=== PATIENT | male | born 1960 | race Caucasian/White ===

== ENCOUNTER 2017-01-27 09:57 | Emergency (ER) | payer OTHER ==
[~2017-01-27] VITALS: Ht 167.6 cm; Wt 120.0 kg
[~2017-01-27 09:57] MED LIST: ATEN100T PO; IBUP200C PO; LOSA50TA37 PO; OXYC5TAB72 PO; POLY17PO6 PO; RANI150C4 PO; TEST200V20 IM; ZYL100 PO
[2017-01-27 09:58] VITALS: BP 137/89; PULSE 42; RESP 18; O2SAT 100
--- NOTE | 2017-01-27 10:07 | ED.REPORT ---
HPI-Extremity Problem Lower Date of Service Jan 27, 2017 ED Provider: Jak Flor DO 56 y/o male with a hx of gout and arthritis presents to the ED complaining of bilateral knee pain, onset a few years ago. The pt states his PCP administers cortisone shots every 4-6 months but she couldn't do it this month. He also takes hydrocodone and Ibuprofen for the pain.The pt has already left a message with Dr. Francisco, orthopedic. He is concerned as he doesn't want to take time off from work due to the pain. PCP: Dr. Lu Nursing Notes Stated Complaint: KNEE PAIN Chief Complaint: Extremity Trauma Nursing Notes Reviewed: Yes Allergies: Coded Allergies: No Known Allergies (Verified Allergy, Unknown, 02/03/16) Scheduled Allopurinol (Allopurinol) 100 Mg Tablet 100 MG PO DAILY Atenolol (Atenolol) 100 Mg Tablet 100 MG PO DAILY Polyethylene Glycol 3350 (Miralax) 17 Gm Powd.pack 17 GM PO DAILY Prednisone (PredniSONE) 20 Mg Tablet 20 MG PO DAILY 2omg daily for 5 days, then 10 mg daily for 2 days Ranitidine (Ranitidine) 150 Mg Capsule 150 MG PO BID Testosterone Cypionate (Testosterone Cypionate) 200 Mg/1 Ml Vial 200 MG IM [id number] Scheduled PRN Ibuprofen (Ibuprofen) 200 Mg Capsule 200-400 MG PO QID PRN PRN For Pain oxyCODONE (oxyCODONE) 5 Mg Tablet 5 MG PO Q4H PRN PRN For Moderate Pain Miscellaneous Medications Losartan Potassium (Losartan Potassium) 50 Mg Tablet 50 MG PO General Time Seen by MD: 10:07 Chief Complaint Knee injury right, Knee injury left Hx Obtained From: Patient Arrived By: Walk-in Onset Occurred: More than a week ago... (>6 months) Symptom Duration: Since onset Location: : Knee left: Knee right Quality: Painful Severity: Current: Severe Severity: Maximum: Severe Recent Healthcare: Recent doctor visit Similar Sx Previous: Yes Past Medical History Past Medical History Gout Acid reflux Reports: Hyperlipidemia, Hypertension Past Surgical History Skin grafting, hospitalized in [facility] for 42 days per patient Left knee scope Hernia repair Family History non-contributory Smoking History Former Smoker Social History Alcohol Use: "Social" Drug Use: Denies drug use Ambulatory Status Independent Review of Systems Musculoskeletal: Reports: Joint pain (bilateral knees) Complete sys rev & neg: except as marked. Physical Exam Initial Vital Signs Vital Signs (First) Date Time Temp Pulse Resp B/P Pulse Ox O2 Delivery O2 Flow Rate FiO2 01/27/17 09:58 36.1 42 18 137/89 100 Room Air Initial VS: Reviewed Head / Eyes: Atraumatic, Normocephalic Neck: Full range of motion Respiratory: Breath sounds normal, No respiratory distress Cardiovascular: Regular rate & rhythm, Heart sounds normal Abdomen / GI: Soft, Non-tender Upper Extremities: Vascular intact, Neuro intact, No swelling, No tenderness Skin: Warm, Dry, No cyanosis Neurologic: Alert, Oriented, Nonfocal Lower Extremity / Pelvis / MS: Atraumatic, Full range of motion, No deformity, Neurologic intact, Vascular intact Ankle / Foot: Atraumatic, Full range of motion, No deformity, Neurologic intact , Vascular intact General/Constitutional: Awake, Alert, Cooperative Distress / Hydration: Positive: Distress mild Re-Eval/Medical Decision Med Decision/Clinical Course Deferred the intra-articular cortisone injections to orthopedics. Given a short course of low-dose oral prednisone. Return and follow-up precautions given. Re-Evaluation/Progress : Time of Eval: 10:10 Re-Evaluation/Progress Note: Discussed diagnosis and plan to discharge. Pt understands and agrees with the plan. F/U instructions and RTER warninggiven. All questions addressed. Counseled Regarding: Diagnosis, Need for follow-up, When/why to return to ED Discharge & Departure Impression: Primary Impression: Osteoarthritis of right knee Additional Impression: Osteoarthritis of left knee Disposition: Home Discharge Condition All VS Reviewed: Yes Condition: Stable Additional Instructions: Follow up with orthopedics for steroid injections into your knees. Take prednisone daily to help with discomfort. Return to the ER as needed for any concerning symptoms. Referrals: Tiffany Roland DO (PCP) Jorge Francisco MDibchano Attestation Portions of this note were transcribed by Pat Urban. I, , personally performed the history, physical exam and medical decision-making;I reviewed and confirmed the accuracy of the information in the transcribed note. Signed by Joann Clemens. 01/27/17 10:37 copies to: Tiffany Roland DO; Jorge Francisco MD, Timothy S DO Jan 27, 2017 10:07 Pat Urban Jan 27, 2017 10:18
[2017-01-27] MEDS ORDERED: PRE20 PO (10:18)
== END 2017-01-27 10:30 | disposition home or self-care (01) ==
LOC: SED 09:57
DX: M17.0 Bilateral primary osteoarthritis of knee (principal); K21.9 Gastro-esophageal reflux disease without esophagitis; E78.5 Hyperlipidemia, unspecified; I10 Essential (primary) hypertension; Z87.891 Personal history of nicotine dependence; Z87.39 Personal history of other diseases of the musculoskeletal system and connective tissue
CPT/HCPCS: 96372; 99283; G0463